=== PATIENT | female | born 1985 | race Caucasian/White ===

== ENCOUNTER 2017-01-11 08:22 | Inpatient (IN) | payer BC ==
[~2017-01-11 08:22] MED LIST: GLUCOPHAGE500 MG; HYDROCHLOROTHIA25 MG; LISINOPRIL10 MG PO
[2017-01-11] MEDS ORDERED: NOVOLIN N100 UNIT/1 PO ×2 (09:04→09:05)
[2017-01-11] MEDS ORDERED: HUMULIN N100 UNIT/1 (09:06)
[2017-01-11] MEDS ORDERED: HUMULIN N100 UNIT/1 PO (09:07)
== END 2017-01-14 13:15 | disposition home or self-care (01) | DRG 774 ==
LOC: FBCO 08:22 → FBC 08:30
PROVIDERS: ADMIT Obstetrics & Gynecology
PROC: 3E0R3BZ Introduction of Anesthetic Agent into Spinal Canal, Percutaneous Approach (ICD-10-PCS; 2017-01-11)
PROC: 00HU33Z Insertion of Infusion Device into Spinal Canal, Percutaneous Approach (ICD-10-PCS; 2017-01-11)
PROC: 0DQR0ZZ Repair Anal Sphincter, Open Approach (ICD-10-PCS; principal; 2017-01-12)
PROC: 10E0XZZ Delivery of Products of Conception, External Approach (ICD-10-PCS; principal; 2017-01-12)
DX: O42.02 Full-term premature rupture of membranes, onset of labor within 24 hours of rupture (principal); O24.12 Pre-existing type 2 diabetes mellitus, in childbirth; O10.92 Unspecified pre-existing hypertension complicating childbirth; O70.21 Third degree perineal laceration during delivery, IIIa; Z3A.37 37 weeks gestation of pregnancy; Z37.0 Single live birth; O69.81X0 Labor and delivery complicated by cord around neck, without compression, not applicable or unspecified; E11.9 Type 2 diabetes mellitus without complications; Z79.4 Long term (current) use of insulin; O99.214 Obesity complicating childbirth
CPT/HCPCS: 01960; 36415; 85027; J1644; J2550; J2590; J2795; J3010; J7120